=== PATIENT | female | born 1990 | race Caucasian/White ===

== ENCOUNTER 2023-07-25 22:34 | Emergency (ER) | payer MEDICAID ==
[~2023-07-25] VITALS: Ht 162.6 cm; Wt 63.5 kg
[2023-07-25] MEDS ORDERED: ALPRAZOLAM 0.25 MG TABLET PO ONE (23:30)
[2023-07-25] MEDS ORDERED: BUPR-96 PO (23:32)
[2023-07-25] MEDS ORDERED: ALPR1TAB7 PO (23:32)
[2023-07-25] MEDS ORDERED: HYDR50TA62 PO (23:37)
[2023-07-25] MEDS ORDERED: ALPRAZOLAM 0.5 MG TABLET ONE (23:44)
[2023-07-26 00:01] VITALS: BP 113/85; O2SAT 100
== END 2023-07-26 00:02 | disposition home or self-care (01) ==
LOC: ER 22:42
DX: F41.9 Anxiety disorder, unspecified (principal); F15.23 Other stimulant dependence with withdrawal; F17.210 Nicotine dependence, cigarettes, uncomplicated; Z76.5 Malingerer [conscious simulation]; Z79.899 Other long term (current) drug therapy
CPT/HCPCS: A4663